=== PATIENT | female | born 1990 | race Caucasian/White ===

== ENCOUNTER 2018-12-31 13:57 | Emergency (ER) | payer OTHER ==
[~2018-12-31] VITALS: Ht 157.5 cm; Wt 56.7 kg
[2018-12-31 14:00] VITALS: BP 133/82; Ht 157.5 cm; Wt 56.7 kg
== END 2018-12-31 15:30 | disposition home or self-care (01) ==
LOC: ED 13:57
DX: S61.452A Open bite of left hand, initial encounter (principal); W55.01XA Bitten by cat, initial encounter; Y93.89 Activity, other specified; Y92.89 Other specified places as the place of occurrence of the external cause; Y99.8 Other external cause status
CPT/HCPCS: 90715; J2543

== ENCOUNTER 2020-04-05 11:33 | Emergency (ER) | payer OTHER ==
[~2020-04-05] VITALS: Ht 157.5 cm; Wt 59.9 kg
[2020-04-05 11:39] VITALS: Ht 157.5 cm; Wt 59.9 kg
[2020-04-05 12:45] VITALS: BP 142/104
== END 2020-04-05 12:45 | disposition home or self-care (01) ==
LOC: ED 11:33
DX: G43.909 Migraine, unspecified, not intractable, without status migrainosus (principal); J31.0 Chronic rhinitis
CPT/HCPCS: J1885